=== PATIENT | male | born 1975 | race Caucasian/White ===

== ENCOUNTER → 2021-04-15 | Outpatient (CLI) | payer BC ==
[~2021-04-15] MED LIST: FLOMAX0.4 MG PO; GLUCOPHAGE500 MG PO; PERCOCET 5-3251 EACH PO; TOPROL XL25 MG PO; ZOFRAN4 MG PO
[2021-04-15 10:39] LABS: HEMOGLOBIN 17.5 gm/dl (14.0-17.5); RED BLOOD COUNT 5.77 M/UL (4.20-5.50)
[2021-04-15 11:04] LABS: BUN/CREATININE RATIO 16 (0-10)
[2021-04-17 17:11] LABS: CHOLESTEROL, TOTAL 202 mg/dL (100-199); HDL SIZE 8.7 nm (>=9.2); HDL-C 35 mg/dL (>39); HDL-P (TOTAL) 26.2 umol/L (>=30.5); LARGE HDL-P 3.9 umol/L (>=4.8); LARGE VLDL-P 4.2 nmol/L (<=2.7); LDL SIZE 20.2 nm (>20.5); LDL SIZE 20.2 nm (>=20.8); LDL-C 129 mg/dL (0-99); LDL-P 1749 nmol/L (<1000); LP-IR SCORE 64 (<=45); SMALL LDL-P 1140 nmol/L (<=527); TRIGLYCERIDES 212 mg/dL (0-149); VLDL SIZE 44.2 nm (<=46.6)
== END ==
LOC: LAB 10:16
PROVIDERS: Emergency Medicine
DX: E11.65 Type 2 diabetes mellitus with hyperglycemia (principal); I10 Essential (primary) hypertension; E78.2 Mixed hyperlipidemia; K21.9 Gastro-esophageal reflux disease without esophagitis; R74.01 Elevation of levels of liver transaminase levels
CPT/HCPCS: 36415; 80053; 80061; 83036; 83704; 84443; 85027

== ENCOUNTER → 2021-09-12 | Outpatient (CLI) | payer BC ==
[2021-09-12 13:27] LABS: BUN/CREATININE RATIO 15 (0-10)
== END ==
LOC: LAB 11:26
PROVIDERS: Emergency Medicine
DX: E11.65 Type 2 diabetes mellitus with hyperglycemia (principal); I10 Essential (primary) hypertension; E78.2 Mixed hyperlipidemia
CPT/HCPCS: 36415; 80053; 83036

== ENCOUNTER → 2021-12-05 | Outpatient (CLI) | payer BC ==
[2021-12-05 08:38] LABS: BUN/CREATININE RATIO 12 (0-10)
[2021-12-06 15:10] LABS: CHOLESTEROL, TOTAL 165 mg/dL (100-199); HDL SIZE 8.8 nm (>=9.2); HDL-C 32 mg/dL (>39); HDL-P (TOTAL) 24.1 umol/L (>=30.5); LARGE HDL-P 4.1 umol/L (>=4.8); LDL-C 105 mg/dL (0-99); LDL-P 1428 nmol/L (<1000); LP-IR SCORE 61 (<=45); SMALL LDL-P 1036 nmol/L (<=527); TRIGLYCERIDES 157 mg/dL (0-149); VLDL SIZE 45.3 nm (<=46.6)
== END ==
LOC: LAB 08:01
PROVIDERS: Emergency Medicine
DX: E11.65 Type 2 diabetes mellitus with hyperglycemia (principal); I10 Essential (primary) hypertension; E78.2 Mixed hyperlipidemia; E11.9 Type 2 diabetes mellitus without complications; R74.01 Elevation of levels of liver transaminase levels
CPT/HCPCS: 36415; 80053; 80061; 83036; 83704; 84550